=== PATIENT | male | born 1935 | race Caucasian/White ===

== ENCOUNTER 2017-09-09 10:42 | Emergency (ER) | payer MEDICARE, OTHER ==
[~2017-09-09] VITALS: Ht 170.2 cm; Wt 72.6 kg
[~2017-09-09 10:42] MED LIST: ERGO400 PO; LATA.005SO; LEVSOD50 PO; MULVITA PO; OMEP20ER PO; TRAM50 PO
[2017-09-09] MEDS ORDERED: Curcumin1 GM (12:19)
== END 2017-09-09 12:21 | disposition home or self-care (01) ==
LOC: ER 10:42
DX: S60.221A Contusion of right hand, initial encounter (principal); Z91.013 Allergy to seafood; Z88.5 Allergy status to narcotic agent; Z79.899 Other long term (current) drug therapy; Z87.891 Personal history of nicotine dependence; W22.8XXA Striking against or struck by other objects, initial encounter; Y99.0 Civilian activity done for income or pay
CPT/HCPCS: 73130; 99283

== ENCOUNTER → 2018-01-21 | Outpatient (CLI) | payer MEDICARE, OTHER ==
[~2018-01-21] MED LIST changes: +Curcumin1 GM
[2018-01-24 14:55] LABS: Stool Occult Bld Immuno 1 Negative (NEGATIVE); Stool Occult Bld Immuno 2 Negative (NEGATIVE); Stool Occult Bld Immuno 3 Negative (NEGATIVE)
== END | disposition home or self-care (01) ==
LOC: LAB EV 15:00
PROVIDERS: Family Medicine
DX: Z12.11 Encounter for screening for malignant neoplasm of colon (principal)
CPT/HCPCS: G0328

== ENCOUNTER 2019-03-08 12:46 | Day surgery (SDC) | payer MEDICARE, OTHER ==
[~2019-03-08] VITALS: Ht 172.7 cm; Wt 82.7 kg
[~2019-03-08 12:46] MED LIST changes: +ASCO500 PO; +B12 PO; +BICARB PO; +CENTRUM SILVER1 EAC2 PO; -Curcumin1 GM; +Curcumin1 GM PO; +D3-20002000 UNIT PO; +DIPH50 PO; +MAGNESIUM MALATE PO; +MAGNESIUM250 MG PO; +Prinivil10 MG PO; +TUMS500 MG PO; +TURMERIC 500 M1 EACH PO; +VITAMIN B122500 MC1 PO; +VITAMIN B50 COMPLEX PO; +VITAMIN D-32000 UNIT PO; +Vitamin B Comple1 EA PO; +[UNRECOGNIZED DRUG - OTHER] PO; +[UNRECOGNIZED DRUG - OTHER] PO
== END 2019-03-08 14:30 | disposition home or self-care (01) ==
LOC: ORSCSDS 12:46
PROVIDERS: Internal Medicine Gastroenterology
PROC: 0DB68ZX Excision of Stomach, Via Natural or Artificial Opening Endoscopic, Diagnostic (ICD-10-PCS; principal; 2019-03-08 14:00)
PROC: 0D757ZZ Dilation of Esophagus, Via Natural or Artificial Opening (ICD-10-PCS; principal; 2019-03-08 14:00)
DX: K21.9 Gastro-esophageal reflux disease without esophagitis (principal); R13.14 Dysphagia, pharyngoesophageal phase; K22.2 Esophageal obstruction; K44.9 Diaphragmatic hernia without obstruction or gangrene; Z87.891 Personal history of nicotine dependence; Z79.899 Other long term (current) drug therapy
CPT/HCPCS: 87081; J2704; J7120

== ENCOUNTER 2020-06-05 12:42 | Emergency (ER) | payer MEDICARE, OTHER ==
[~2020-06-05] VITALS: Ht 175.3 cm; Wt 79.4 kg
[2020-06-05] MEDS ORDERED: LOSA25 (12:54)
[2020-06-05 13:12] LABS: BASOPHILS ABSOLUTE AUTO 0.06 K/mm3 (0.00-0.23); BASOPHILS PERCENT AUTO 1 % (0-2); EOSINOPHILS ABSOLUTE AUTO 0.06 K/mm3 (0.00-0.68); EOSINOPHILS PERCENT AUTO 1 % (0-6); Hematocrit 36.2 % (37.0-53.0); Hemoglobin 10.8 g/dL (13.5-17.5); IMMATURE GRAN ABSOLUTE AUTO 0.07 K/mm3 (0.00-0.10); IMMATURE GRAN PERCENT AUTO 1 % (0-1); LYMPHOCYTES ABSOLUTE AUTO 1.26 K/mm3 (0.84-5.20); LYMPHOCYTES PERCENT AUTO 18 % (21-46); MONOCYTES PERCENT AUTO 9 % (4-13); Mean Corpuscular HGB 19.4 pg (26.0-34.0); Mean Corpuscular HGB Conc 29.8 g/dL (31.5-36.5); Mean Corpuscular Volume 65 fL (80-100); NEUTROPHILS ABSOLUTE AUTO 4.88 K/mm3 (1.96-9.15); NEUTROPHILS PERCENT AUTO 70 % (41-73); Platelet Count 95 K/mm3 (150-400); RDW Coefficient Variation 21.1 % (11.7-14.2); RDW Standard Deviation 44.2 fL (35.1-46.3); Red Blood Cell Count 5.57 M/mm3 (4.30-5.90); White Blood Cell Count 6.93 K/mm3 (4.00-11.30)
[2020-06-05 13:31] LABS: Percent Saturation 46.6 % (20.0-50.0)
[2020-06-05 13:41] LABS: Troponin I <0.015 ng/mL (0.000-0.040)
[2020-06-05 13:42] LABS: Alanine Aminotransfer (ALT/SGP 30 U/L (12-78); Albumin, Blood 4.3 g/dL (3.4-5.0); Albumin/Globulin Ratio 1.5 (0.8-1.8); Alk Phos 71 U/L (50-136); Anion Gap 7 mmol/L (6-16); Aspartate Aminotrans (AST/SGOT 38 U/L (12-37); Bilirubin, Total 1.6 mg/dL (0.1-1.0); Blood Urea Nitrogen 13 mg/dL (8-24); Bun/Creatinine Ratio 17.1 (12.0-20.0); CO2, Blood 25 mmol/L (21-32); Calcium, Blood 8.9 mg/dL (8.5-10.1); Chloride, Blood 109 mmol/L (98-108); Creatinine, Blood 0.76 mg/dL (0.60-1.20); Globulin, Blood 2.8 g/dL (2.2-4.0); Glomerular Filtration Rate >60 (60-); Glucose, Blood 103 mg/dL (70-99); Potassium, Blood 4.5 mmol/L (3.5-5.5); Sodium, Blood 141 mmol/L (136-145); Total Protein, Blood 7.1 g/dL (6.4-8.2)
[2020-10-28] MEDS ORDERED: COSOPT EYE DROP10 ML OP (11:17)
[2020-10-28] MEDS ORDERED: METO25ER PO (11:18)
[2020-10-28] MEDS ORDERED: LOSA25 PO (11:18)
[2020-10-28] MEDS ORDERED: ALBU90OI INH (11:18)
== END 2020-06-05 14:37 | disposition home or self-care (01) ==
LOC: ER 12:42
PROVIDERS: Emergency Medicine
DX: I49.3 Ventricular premature depolarization (principal); Z79.899 Other long term (current) drug therapy; Z91.013 Allergy to seafood; Z88.8 Allergy status to other drugs, medicaments and biological substances; Z87.891 Personal history of nicotine dependence
CPT/HCPCS: 36415; 71045; 80053; 82728; 83540; 83550; 84443; 84484; 85025; 93005; 93010; 99285-25

== ENCOUNTER → 2020-07-23 | Outpatient (CLI) | payer MEDICARE, OTHER ==
[~2020-07-23] MED LIST changes: +ALBU90OI INH; +COSOPT EYE DROP10 ML OP; +LOSA25; +LOSA25 PO; +METO25ER PO
[2020-07-29 00:10] LABS: HSV-1 DNA Negative (Negative); HSV-2 DNA Positive (Negative)
== END | disposition home or self-care (01) ==
LOC: LAB 15:27 → LAB SHORT 15:27
PROVIDERS: Physician Assistant Medical
DX: Z08 Encounter for follow-up examination after completed treatment for malignant neoplasm (principal); D18.01 Hemangioma of skin and subcutaneous tissue; L82.1 Other seborrheic keratosis; L81.4 Other melanin hyperpigmentation; L73.8 Other specified follicular disorders; R60.0 Localized edema; L89.329 Pressure ulcer of left buttock, unspecified stage; L89.319 Pressure ulcer of right buttock, unspecified stage; R21 Rash and other nonspecific skin eruption; Z85.820 Personal history of malignant melanoma of skin; Z85.828 Personal history of other malignant neoplasm of skin
CPT/HCPCS: 87070; 87205; 87529; 87798

== ENCOUNTER 2020-11-04 09:14 | Day surgery (SDC) | payer MEDICARE, OTHER ==
[~2020-11-04] VITALS: Ht 172.7 cm; Wt 73.7 kg
--- NOTE | 2020-11-04 09:51 | NUR ---
11/04/20 0951 Trixie Rushing FIRST ATTEMPT MISSED BY DELORES IN THE RIGHT FOREARM. SECOND ATTEMPT SUCCESSFUL IN RIGHT HAND. PT TOÑITO.
== END 2020-11-04 11:50 | disposition home or self-care (01) ==
LOC: ORSCSDS 09:14
PROVIDERS: Internal Medicine Gastroenterology
PROC: 0DBK8ZX Excision of Ascending Colon, Via Natural or Artificial Opening Endoscopic, Diagnostic (ICD-10-PCS; principal; 2020-11-04 10:45)
DX: Z12.11 Encounter for screening for malignant neoplasm of colon (principal); Z86.010 Personal history of colon polyps; D12.2 Benign neoplasm of ascending colon; K57.30 Diverticulosis of large intestine without perforation or abscess without bleeding; Z87.891 Personal history of nicotine dependence; Z85.46 Personal history of malignant neoplasm of prostate; I10 Essential (primary) hypertension; Z79.899 Other long term (current) drug therapy
CPT/HCPCS: 88305; J2704; J7120

== ENCOUNTER 2021-02-11 15:51 | Emergency (ER) | payer MEDICARE, OTHER ==
[~2021-02-11] VITALS: Ht 172.7 cm; Wt 77.6 kg
== END 2021-02-11 17:51 | disposition home or self-care (01) ==
LOC: ER 15:51
DX: D64.9 Anemia, unspecified (principal); Z88.5 Allergy status to narcotic agent; Z91.013 Allergy to seafood; Z79.899 Other long term (current) drug therapy; Z87.891 Personal history of nicotine dependence
CPT/HCPCS: 93005; 93010; 99283-25

== ENCOUNTER → 2021-03-06 | Outpatient (CLI) | payer MEDICARE, OTHER ==
[2021-03-06 15:56] LABS: Hematocrit 32.6 % (37.0-53.0); Mean Corpuscular HGB 19.6 pg (26.0-34.0); Mean Corpuscular HGB Conc 30.7 g/dL (31.5-36.5); Mean Corpuscular Volume 64 fL (80-100); RDW Coefficient Variation 21.3 % (11.7-14.2); RDW Standard Deviation 45.4 fL (35.1-46.3); Red Blood Cell Count 5.11 M/mm3 (4.30-5.90); White Blood Cell Count 10.87 K/mm3 (4.00-11.30)
[2021-03-06 16:08] LABS: Anion Gap 10 mmol/L (6-16); Blood Urea Nitrogen 21 mg/dL (8-24); Bun/Creatinine Ratio 23.3 (12.0-20.0); CO2, Blood 27 mmol/L (21-32); Calcium, Blood 9.3 mg/dL (8.5-10.1); Chloride, Blood 105 mmol/L (98-108); Glomerular Filtration Rate >60 (60-); Glucose, Blood 93 mg/dL (70-99); Sodium, Blood 142 mmol/L (136-145)
[2021-03-06 16:09] LABS: Troponin I <0.017 ng/mL (0.000-0.040)
[2021-03-06 16:56] LABS: Platelet Count 96 K/mm3 (150-400)
[2021-03-06 17:02] LABS: BAND PERCENT MAN 9 % (0-8); BASOPHILS PERCENT MAN 1 % (0-2); EOSINOPHILS ABSOLUTE MAN 0.32 K/mm3 (0.00-0.68); EOSINOPHILS PERCENT MAN 3 % (0-6); LYMPHOCYTES PERCENT MAN 35 % (21-46); MONOCYTES ABSOLUTE MAN 0.65 K/mm3 (0.16-1.47); MONOCYTES PERCENT MAN 6 % (4-13); NEUTROPHILS ABSOLUTE MAN 5.97 K/mm3 (1.96-9.15); SEG NEUTROPHILS PERCENT MAN 46 % (41-73); TOTAL CELLS COUNTED 100
== END | disposition home or self-care (01) ==
LOC: LAB 15:46 → LAB SHORT 15:46
PROVIDERS: Physician Assistant Surgical
DX: R53.83 Other fatigue (principal)
CPT/HCPCS: 80048; 83880; 84484; 85025

== ENCOUNTER → 2024-03-05 | Outpatient (CLI) | payer MEDICARE, OTHER ==
[2024-03-06 12:17] LABS: Percent Saturation 33.1 % (20.0-50.0)
== END ==
LOC: LAB 14:30 → LAB SHORT 14:30
PROVIDERS: Internal Medicine Hematology & Oncology
DX: D64.89 Other specified anemias (principal); D50.0 Iron deficiency anemia secondary to blood loss (chronic); E53.8 Deficiency of other specified B group vitamins
CPT/HCPCS: 82607; 82728; 82746; 83540; 83550

== ENCOUNTER 2025-01-30 12:44 | Emergency (ER) | payer MEDICARE ==
[~2025-01-30] VITALS: Ht 172.7 cm; Wt 170.0 kg
[2025-01-30 13:04] VITALS: BP 134/77
[2025-01-30 13:30] LABS: Hematocrit 23.2 % (37.0-53.0); Hemoglobin 7.3 g/dL (13.5-17.5); Mean Corpuscular HGB Conc 31.5 g/dL (31.5-36.5); Mean Corpuscular Volume 67 fL (80-100); NRBC ABSOLUTE 0.18 K/mm3 (0.00-0.02); NRBC Auto 0.2 /100 WBC (0.0-0.2); Platelet Count 190 K/mm3 (150-400); RDW Coefficient Variation 29.7 % (11.7-14.2); RDW Standard Deviation 65.1 fL (35.1-46.3)
[2025-01-30 13:45] LABS: Alanine Aminotransfer (ALT/SGP 19.0 U/L (12-78); Albumin, Blood 4.0 g/dL (3.4-5.0); Albumin/Globulin Ratio 1.5 (0.8-1.8); Anion Gap 11.0 mmol/L (3-11); Aspartate Aminotrans (AST/SGOT 22.0 U/L (12-37); Bilirubin, Total 1.1 mg/dL (0.1-1.0); Blood Urea Nitrogen 23.0 mg/dL (8-24); CO2, Blood 24.0 mmol/L (21-32); Calcium, Blood 9.0 mg/dL (8.5-10.1); Chloride, Blood 108.0 mmol/L (98-108); Creatinine, Blood 1.27 mg/dL (0.60-1.20); Globulin, Blood 2.6 g/dL (2.2-4.0); Glucose, Blood 111.0 mg/dL (70-99); Potassium, Blood 4.4 mmol/L (3.5-5.5); Sodium, Blood 139.0 mmol/L (136-145); Total Protein, Blood 6.6 g/dL (6.4-8.2)
[2025-01-30 13:58] LABS: BAND PERCENT MAN 4 % (0-8); BASOPHILS ABSOLUTE MAN 0.00 K/mm3 (0.00-0.23); BASOPHILS PERCENT MAN 0 % (0-2); EOSINOPHILS ABSOLUTE MAN 2.49 K/mm3 (0.00-0.68); EOSINOPHILS PERCENT MAN 3 % (0-6); LYMPHOCYTES ABSOLUTE MAN 10.79 K/mm3 (0.84-5.20); LYMPHOCYTES PERCENT MAN 13 % (21-46); METAMYELOCYTE ABSOLUTE MAN 6.64 K/mm3 (0.00-0.00); METAMYELOCYTE PERCENT MAN 8 % (0-0); MONOCYTES ABSOLUTE MAN 21.58 K/mm3 (0.16-1.47); MONOCYTES PERCENT MAN 26 % (4-13); MYELOCYTE ABSOLUTE MAN 1.66 K/mm3 (0.00-0.00); MYELOCYTE PERCENT MAN 2 % (0-0); NEUTROPHILS ABSOLUTE MAN 39.85 K/mm3 (1.96-9.15); SEG NEUTROPHILS PERCENT MAN 44 % (41-73)
== END 2025-01-30 15:52 | disposition home or self-care (01) ==
LOC: ER 12:44
PROVIDERS: Student in an Organized Health Care Education/Training Program
DX: S22.41XA Multiple fractures of ribs, right side, initial encounter for closed fracture (principal); D72.829 Elevated white blood cell count, unspecified; D56.3 Thalassemia minor; R16.1 Splenomegaly, not elsewhere classified; W18.30XA Fall on same level, unspecified, initial encounter; Z87.891 Personal history of nicotine dependence; Z91.013 Allergy to seafood; Z88.8 Allergy status to other drugs, medicaments and biological substances
CPT/HCPCS: 71100; 74177; 80053; 85025; 99284-25; Q9967

== ENCOUNTER 2025-02-20 09:22 | Emergency (ER) | payer MEDICARE ==
[~2025-02-20] VITALS: Ht 172.7 cm; Wt 73.9 kg
[2025-02-20 09:52] LABS: Hematocrit 18.2 % (37.0-53.0); Mean Corpuscular HGB Conc 30.8 g/dL (31.5-36.5); Mean Corpuscular Volume 68 fL (80-100); NRBC ABSOLUTE 0.64 K/mm3 (0.00-0.02); NRBC Auto 0.5 /100 WBC (0.0-0.2); Platelet Count 152 K/mm3 (150-400); RDW Coefficient Variation 29.0 % (11.7-14.2); RDW Standard Deviation 65.3 fL (35.1-46.3)
[2025-02-20 10:10] LABS: Hemoglobin 5.6 g/dL (13.5-17.5)
[2025-02-20 10:15] LABS: Alanine Aminotransfer (ALT/SGP 23.0 U/L (12-78); Albumin, Blood 3.8 g/dL (3.4-5.0); Albumin/Globulin Ratio 1.7 (0.8-1.8); Anion Gap 14.0 mmol/L (3-11); Aspartate Aminotrans (AST/SGOT 20.0 U/L (12-37); Bilirubin, Total 0.8 mg/dL (0.1-1.0); Blood Urea Nitrogen 35.0 mg/dL (8-24); CO2, Blood 21.0 mmol/L (21-32); Calcium, Blood 10.8 mg/dL (8.5-10.1); Chloride, Blood 106.0 mmol/L (98-108); Creatinine, Blood 1.68 mg/dL (0.60-1.20); Globulin, Blood 2.3 g/dL (2.2-4.0); Glucose, Blood 184.0 mg/dL (70-99); Potassium, Blood 3.5 mmol/L (3.5-5.5); Sodium, Blood 137.0 mmol/L (136-145); Total Protein, Blood 6.1 g/dL (6.4-8.2)
[2025-02-20 10:31] LABS: BAND PERCENT MAN 9 % (0-8); BASOPHILS ABSOLUTE MAN 0.00 K/mm3 (0.00-0.23); BASOPHILS PERCENT MAN 0 % (0-2); BLASTS PERCENT MAN 1 % (0-0); EOSINOPHILS ABSOLUTE MAN 2.82 K/mm3 (0.00-0.68); EOSINOPHILS PERCENT MAN 2 % (0-6); LYMPHOCYTES ABSOLUTE MAN 7.06 K/mm3 (0.84-5.20); LYMPHOCYTES PERCENT MAN 5 % (21-46); METAMYELOCYTE ABSOLUTE MAN 8.47 K/mm3 (0.00-0.00); METAMYELOCYTE PERCENT MAN 6 % (0-0); MONOCYTES ABSOLUTE MAN 42.36 K/mm3 (0.16-1.47); MONOCYTES PERCENT MAN 30 % (4-13); MYELOCYTE ABSOLUTE MAN 7.06 K/mm3 (0.00-0.00); MYELOCYTE PERCENT MAN 5 % (0-0); NEUTROPHILS ABSOLUTE MAN 72.01 K/mm3 (1.96-9.15); SEG NEUTROPHILS PERCENT MAN 42 % (41-73)
[2025-02-20] MEDS ORDERED: NS 1,000 ML IV SCH (10:55)
[2025-02-20 11:08] LABS: Ferritin, Serum 1429.0 ng/mL (26-388); Total Iron Binding Capacity 273.0 ug/dL (250-450)
[2025-02-20 13:09] LABS: IMMATURE RETIC FRACTION 42.5 % (2.3-16.0); RETIC HGB EQUIVALENT 18.2 pg (28.20-36.60); RETICULOCYTE ABSOLUTE 0.0082 M/mm3 (0.0200-0.1100)
[2025-02-20 13:11] LABS: RETICULOCYTE COUNT PERCENT 0.92 % (0.50-2.50)
[2025-02-20 14:54] VITALS: BP 144/63
--- NOTE | 2025-02-21 12:46 | NUR ---
PALLIATIVE CARE NOTE: LATE ENTRY 1800 02/20/25 REQUEST TO SEE PT IN ER LAST NIGHT. PT IN ROOM, HE HAS HAD 2 UNITS OF PRBC'S. HE IS ABLE TO HAVE MEANINGFUL CONVERSATION. DISCUSSED CONCERNS OF HIS MEDICAL CONDITION HAVING LEUKEMIA. PT STATES HE CANNOT BE ADMITTED TO HOSPITAL BECAUSE HE HAS 2 DOGS LOCKED UP AT HOME. HE DECLINES TO STAY IF HE NEEDS ADMISSION STATUS. PT IS WANTING TO FURTHER HIS TX FOR CANCER THOUGH. HE STATES IF HE CAN WALK HE WILL OPT TO GO HOME. IF HE CANNOT WALK HE WILL AGREE TO ADMISSION. PT WISHES TO REMAIN A FULL CODE. HE DOES NOT WANT HIS DAUGHTER NOTIFIED. PRIMARY RN AND PROVIDER BRANDON NOTIFIED OF PT GOC.
== END 2025-02-20 19:45 | disposition home or self-care (01) ==
LOC: ER 09:22
PROVIDERS: Emergency Medicine; Physician Assistant
DX: C95.90 Leukemia, unspecified not having achieved remission (principal); D64.9 Anemia, unspecified; Z91.013 Allergy to seafood; Z79.899 Other long term (current) drug therapy; Z87.891 Personal history of nicotine dependence; Z88.8 Allergy status to other drugs, medicaments and biological substances
CPT/HCPCS: 36430; 80053; 82728; 83540; 83550; 85025; 85045; 86850; 86900; 86901; 86923; 99284-25; J7030; P9016

== ENCOUNTER → 2025-03-04 | Outpatient (CLI) | payer MEDICARE ==
[2025-03-04 16:06] LABS: Hematocrit 25.1 % (37.0-53.0); Hemoglobin 8.0 g/dL (13.5-17.5); Mean Corpuscular HGB Conc 31.9 g/dL (31.5-36.5); Mean Corpuscular Volume 75 fL (80-100); NRBC ABSOLUTE 0.18 K/mm3 (0.00-0.02); NRBC Auto 0.1 /100 WBC (0.0-0.2); Platelet Count 108 K/mm3 (150-400); RDW Coefficient Variation 28.2 % (11.7-14.2); RDW Standard Deviation 74.4 fL (35.1-46.3)
[2025-03-04 16:51] LABS: BAND PERCENT MAN 7 % (0-8); BASOPHILS ABSOLUTE MAN 0.00 K/mm3 (0.00-0.23); BASOPHILS PERCENT MAN 0 % (0-2); BLASTS PERCENT MAN 1 % (0-0); EOSINOPHILS ABSOLUTE MAN 4.22 K/mm3 (0.00-0.68); EOSINOPHILS PERCENT MAN 3 % (0-6); LYMPHOCYTES ABSOLUTE MAN 7.03 K/mm3 (0.84-5.20); LYMPHOCYTES PERCENT MAN 5 % (21-46); METAMYELOCYTE ABSOLUTE MAN 5.62 K/mm3 (0.00-0.00); METAMYELOCYTE PERCENT MAN 4 % (0-0); MONOCYTES ABSOLUTE MAN 23.92 K/mm3 (0.16-1.47); MONOCYTES PERCENT MAN 17 % (4-13); MYELOCYTE ABSOLUTE MAN 7.03 K/mm3 (0.00-0.00); MYELOCYTE PERCENT MAN 5 % (0-0); NEUTROPHILS ABSOLUTE MAN 91.46 K/mm3 (1.96-9.15); SEG NEUTROPHILS PERCENT MAN 58 % (41-73)
[2025-03-04 17:30] LABS: Alanine Aminotransfer (ALT/SGP 29.0 U/L (12-78); Albumin, Blood 3.8 g/dL (3.4-5.0); Albumin/Globulin Ratio 1.5 (0.8-1.8); Anion Gap 11.0 mmol/L (3-11); Aspartate Aminotrans (AST/SGOT 21.0 U/L (12-37); Bilirubin, Total 0.8 mg/dL (0.1-1.0); Blood Urea Nitrogen 45.0 mg/dL (8-24); CO2, Blood 25.0 mmol/L (21-32); Calcium, Blood 11.5 mg/dL (8.5-10.1); Chloride, Blood 107.0 mmol/L (98-108); Creatinine, Blood 2.21 mg/dL (0.60-1.20); Globulin, Blood 2.5 g/dL (2.2-4.0); Glucose, Blood 127.0 mg/dL (70-99); Potassium, Blood 3.7 mmol/L (3.5-5.5); Sodium, Blood 139.0 mmol/L (136-145); Total Protein, Blood 6.3 g/dL (6.4-8.2)
== END ==
LOC: LAB 15:19 → LAB SHORT 15:19
PROVIDERS: Internal Medicine Hematology & Oncology
DX: D56.8 Other thalassemias (principal)
CPT/HCPCS: 80053; 83540; 85025; 85651

== ENCOUNTER 2025-03-13 00:12 | Day surgery (SDC) | payer MEDICARE ==
[2025-03-11 16:16] LABS: Hematocrit 20.9 % (37.0-53.0); Hemoglobin 6.7 g/dL (13.5-17.5); Mean Corpuscular HGB Conc 32.1 g/dL (31.5-36.5); Mean Corpuscular Volume 74 fL (80-100); NRBC ABSOLUTE 0.07 K/mm3 (0.00-0.02); NRBC Auto 0.2 /100 WBC (0.0-0.2); Platelet Count 68 K/mm3 (150-400); RDW Coefficient Variation 27.9 % (11.7-14.2); RDW Standard Deviation 72.7 fL (35.1-46.3)
[2025-03-11 16:18] LABS: Alanine Aminotransfer (ALT/SGP 28.0 U/L (12-78); Albumin, Blood 3.7 g/dL (3.4-5.0); Albumin/Globulin Ratio 1.6 (0.8-1.8); Anion Gap 10.0 mmol/L (3-11); Aspartate Aminotrans (AST/SGOT 15.0 U/L (12-37); Bilirubin, Total 0.8 mg/dL (0.1-1.0); Blood Urea Nitrogen 48.0 mg/dL (8-24); CO2, Blood 23.0 mmol/L (21-32); Calcium, Blood 10.2 mg/dL (8.5-10.1); Chloride, Blood 107.0 mmol/L (98-108); Creatinine, Blood 1.66 mg/dL (0.60-1.20); Globulin, Blood 2.3 g/dL (2.2-4.0); Glucose, Blood 96.0 mg/dL (70-99); Potassium, Blood 3.4 mmol/L (3.5-5.5); Sodium, Blood 137.0 mmol/L (136-145); Total Protein, Blood 6.0 g/dL (6.4-8.2)
[2025-03-11 17:06] LABS: BAND PERCENT MAN 3 % (0-8); BASOPHILS ABSOLUTE MAN 0.00 K/mm3 (0.00-0.23); BASOPHILS PERCENT MAN 0 % (0-2); BLASTS PERCENT MAN 1 % (0-0); EOSINOPHILS ABSOLUTE MAN 0.82 K/mm3 (0.00-0.68); EOSINOPHILS PERCENT MAN 2 % (0-6); LYMPHOCYTES ABSOLUTE MAN 2.88 K/mm3 (0.84-5.20); LYMPHOCYTES PERCENT MAN 7 % (21-46); METAMYELOCYTE ABSOLUTE MAN 0.82 K/mm3 (0.00-0.00); METAMYELOCYTE PERCENT MAN 2 % (0-0); MONOCYTES ABSOLUTE MAN 10.29 K/mm3 (0.16-1.47); MONOCYTES PERCENT MAN 25 % (4-13); MYELOCYTE ABSOLUTE MAN 0.82 K/mm3 (0.00-0.00); MYELOCYTE PERCENT MAN 2 % (0-0); NEUTROPHILS ABSOLUTE MAN 25.11 K/mm3 (1.96-9.15); SEG NEUTROPHILS PERCENT MAN 58 % (41-73)
[2025-03-13] MEDS ORDERED: NS 250 ML IV SCH (07:00)
[2025-03-13 13:00] VITALS: BP 140/89
[2025-03-13 13:41] VITALS: BP 118/43
[2025-03-13 14:41] VITALS: BP 132/50
[2025-03-13 15:37] VITALS: BP 127/48
[2025-03-13 15:59] VITALS: BP 130/52
[2025-03-13 17:28] VITALS: BP 134/60
== END 2025-03-13 17:32 | disposition home or self-care (01) ==
LOC: ATC 00:12
PROVIDERS: Nurse Practitioner
DX: C92.10 Chronic myeloid leukemia, BCR/ABL-positive, not having achieved remission (principal); I11.0 Hypertensive heart disease with heart failure; I50.9 Heart failure, unspecified; Z88.8 Allergy status to other drugs, medicaments and biological substances; Z91.013 Allergy to seafood; Z87.891 Personal history of nicotine dependence
CPT/HCPCS: 36415; 36430; 80053; 85025; 86850; 86900; 86901; 86923; J7050; P9016

== ENCOUNTER 2025-03-26 13:58 | Day surgery (SDC) | payer MEDICARE ==
[~2025-03-26 13:58] MED LIST changes: +NS 250 ML IV SCH
[2025-03-26 16:40] VITALS: BP 128/43
[2025-03-26 17:06] VITALS: BP 126/68
[2025-03-26 18:07] VITALS: BP 119/42
[2025-03-26 18:45] VITALS: BP 140/53
== END 2025-03-26 18:50 | disposition home or self-care (01) ==
LOC: ATC 13:58
DX: C93.10 Chronic myelomonocytic leukemia not having achieved remission (principal); I11.0 Hypertensive heart disease with heart failure; I50.9 Heart failure, unspecified; Z87.891 Personal history of nicotine dependence; Z88.8 Allergy status to other drugs, medicaments and biological substances; Z91.013 Allergy to seafood
CPT/HCPCS: 36430; 36591; 86850; 86900; 86901; 86923; 99211; J7050; P9016